=== PATIENT | female | born 1995 | race Caucasian/White ===

== ENCOUNTER → 2017-09-12 | Outpatient (CLI) | payer OTHER | LOC: M RAD 17:32 | DX: Z32.01 Encounter for pregnancy test, result positive (principal) | CPT/HCPCS: 76801 ==

== ENCOUNTER → 2018-02-28 | Outpatient (REF) | payer OTHER | LOC: M SFHCLERA 15:40 | DX: R30.0 Dysuria (principal) ==

== ENCOUNTER 2018-12-02 19:13 | Outpatient (CLI) | payer OTHER ==
[~2018-12-02] VITALS: Ht 162.6 cm; Wt 66.3 kg
[2018-12-02 19:32] VITALS: BP 119/73
[2018-12-02] MEDS ORDERED: PRENTAB77 PO (19:34)
[2018-12-02] MEDS ORDERED: TUMS500C PO (19:38)
== END 2018-12-02 20:30 | disposition home or self-care (01) ==
LOC: M LDO 19:13
PROVIDERS: ATTEND Obstetrics & Gynecology
DX: O26.893 Other specified pregnancy related conditions, third trimester (principal); R10.30 Lower abdominal pain, unspecified; R11.0 Nausea; O47.03 False labor before 37 completed weeks of gestation, third trimester; Z3A.34 34 weeks gestation of pregnancy
CPT/HCPCS: 59025; G0378; G0463

== ENCOUNTER → 2018-12-07 | Outpatient (CLI) | payer OTHER ==
[~2018-12-07] MED LIST: PRENTAB77 PO; TUMS500C PO
--- NOTE | 2018-12-07 10:45 | REP ---
SOFT-TISSUE ULTRASOUND RIGHT LOWER EXTREMITY. HISTORY: 23-year-old gravid female at 35 weeks gestation with right upper thigh pain and bruising. Question DVT. SONOGRAPHIC FINDINGS: The deep veins are anechoic and fully compressible from the groin to the popliteal fossa in the right lower extremity on two-dimensional scanning. Color flow imaging is homogeneous. Spectral Doppler interrogation demonstrates intact respiratory variation in flow normal manual augmentation of flow. There is no evidence of deep vein thrombosis. Scanning in the area the patient's bruising is performed. No abnormality is noted here. The greater saphenous vein is patent, fully compressible and anechoic. IMPRESSION: There is no evidence of deep or superficial vein thrombosis. No mass or fluid collection seen. Electronically Signed by Nir Maciel MD 12/07/2018 02:03 P
== END ==
LOC: M RAD 08:59
PROVIDERS: ATTEND Nurse Practitioner Women's Health
DX: O26.893 Other specified pregnancy related conditions, third trimester (principal); M79.651 Pain in right thigh; Z3A.35 35 weeks gestation of pregnancy

== ENCOUNTER 2019-01-01 02:54 | Outpatient (CLI) | payer OTHER ==
[~2019-01-01] VITALS: Ht 162.6 cm; Wt 68.4 kg
[2019-01-01 03:10] VITALS: BP 120/81
== END 2019-01-01 04:30 | disposition home or self-care (01) ==
LOC: M LDO 02:54
PROVIDERS: ATTEND Obstetrics & Gynecology
DX: O47.1 False labor at or after 37 completed weeks of gestation (principal); Z3A.39 39 weeks gestation of pregnancy
CPT/HCPCS: 59025; G0378; G0463

== ENCOUNTER 2019-01-10 03:01 | Inpatient (IN) | payer OTHER ==
[2019-01-10] VITALS (39 sets, daily range): BP systolic 101–148; BP diastolic 56–96
[~2019-01-10] VITALS: Ht 162.6 cm; Wt 70.0 kg
[2019-01-10] MEDS ORDERED: LR 1,000 ML IV SCH ×2 (04:18→08:00)
[2019-01-10] MEDS ORDERED: LACTATED RINGER'S 1000 ML IV STA (04:18)
[2019-01-10] MEDS ORDERED: PENICILLIN G POTASSIUM IV 5 MU in D5W MINI-BAG PLUS 100 ML IV STA (04:18)
[2019-01-10 05:31] LABS: HEMATOCRIT 36.1 % (36.0-47.0); HEMOGLOBIN 11.6 g/dl (12.0-15.5); MEAN CORPUSCULAR HEMOGLOBIN 31.8 pg (27.0-33.0); MEAN CORPUSCULAR HGB CONC 32.1 g/dl (32.0-36.5); MEAN CORPUSCULAR VOLUME 98.9 fl (80.0-96.0); RED BLOOD COUNT 3.65 10^6/uL (4.00-5.40); WHITE BLOOD COUNT 12.6 10^3/uL (4.0-10.0)
[2019-01-10] MEDS ORDERED: FENTANYL 2MCG/ML ROPIVACAINE 0.2% IN 0.9% NACL 100ML IVBAG As Ordered ONE (05:32)
[2019-01-10 05:53] LABS: PLATELET COUNT, AUTOMATED 92 10^3/uL (150-450)
[2019-01-10] MEDS ORDERED: ePHEDrine SULFATE 25 MG/5 ML(5MG/ML) SYRINGE IV PRN (06:30)
[2019-01-10] MEDS ORDERED: FENTANYL/ROPIVACAINE/NACL BAG 100 ML EPIDURAL SCH (06:30)
[2019-01-10] MEDS ORDERED: EPIDURAL/PCA KEYS XX PRN (06:30)
[2019-01-10] MEDS ORDERED: REFRIGERATOR IV KEYS XX PRN (06:30)
[2019-01-10] MEDS ORDERED: ONDANSETRON 4MG/2ML VIAL (J2405) IV PRN (06:30)
[2019-01-10] MEDS ORDERED: diphenhydrAMINE INJ 50MG/ML VIAL (J1200) IV PRN (06:30)
[2019-01-10] MEDS ORDERED: LACTATED RINGER'S 1000 ML IV PRN (06:30)
[2019-01-10] MEDS ORDERED: NALOXONE INJ 0.4 MG/1 ML VIAL (J2310) IV PRN (06:30)
[2019-01-10] MEDS ORDERED: EPIDURAL COMMENT XX SCH (06:30)
[2019-01-10] MEDS ORDERED: OXYTOCIN DRIP 30 UNITS in IV 1 EA IV SCH ×3 (08:00→18:09)
--- NOTE | 2019-01-10 08:13 | HPE ---
DATE OF ADMISSION: 01/10/2019 HISTORY: 23-year-old, (G) 1, para (P) 0 female, at 40-3/7 weeks gestation by last menstrual period (LMP) consistent with ultrasound, presents to [facility] with contractions every 3-4 minutes for the last several hours. Thinks she has been leaking fluid for the last several hours prior to admission as well. She denies vaginal bleeding and contractions increase in intensity. COURSE: Care was through [facility]. She had no complications. She was group B streptococcus (GBS) positive. MEDICAL HISTORY: False positive tuberculosis test and negative chest x-ray. SURGICAL HISTORY: [place] teeth removal. ALLERGIES: NONE. SOCIAL HISTORY: The father of the baby is involved. The patient denies cigarettes, alcohol, or drug use. FAMILY HISTORY: Noncontributory. PHYSICAL EXAM: Blood pressure 134/74. Pulse 84. She appears uncomfortable. Head and neck exam normal. Lungs clear. Heart regular rate and rhythm. Abdomen nontender, gravid. heart tones category 1. Sterile vaginal exam: 3 cm, 100% and -2, posterior, soft vertex. Contractions every 2-3 minutes. Extremities nontender. LABS: Blood type B positive, rubella immune. GBS positive. ASSESSMENT: 23-year-old, 1, para 0 female, at 40-3/7 weeks gestation who presents in labor. PLAN: The patient is admitted on 01/10/2019.
[2019-01-10] MEDS: PENICILLIN G POTASSIUM IV 2.5 MU in IV 1 EA IV SCH ×3 (08:52→17:01)
[2019-01-10] MEDS ORDERED: DOCUSATE SODIUM 100 MG CAP PO PRN (18:15)
[2019-01-10] MEDS ORDERED: ACETAMINOPHEN TAB 650MG DOSE (2X325MG) PO PRN (18:15)
[2019-01-10] MEDS ORDERED: ANUSOL HC CREAM 30GM TOP PRN (18:15)
[2019-01-10] MEDS ORDERED: RHOGAM 300 MCG (1500 IU) INJ (J2790) IM SCH (18:15)
[2019-01-10] MEDS ORDERED: MOM 30ML SUSPENSION UDC PO PRN (18:15)
[2019-01-10] MEDS ORDERED: DIBUCAINE 1% OINTMENT 30GM TOP PRN (18:15)
[2019-01-10] MEDS ORDERED: IBUPROFEN 600 MG TAB PO PRN (18:15)
[2019-01-10] MEDS ORDERED: OXYTOCIN INJ 10 UNITS/ML VIAL (J2590) IV ONE (18:15)
[2019-01-10] MEDS ORDERED: MEASLES,MUMPS,RUBELLA VACCINE INJ (MMR-II) (90707) SC SCH (18:15)
[2019-01-10] MEDS ORDERED: ACETAMINOPHEN 500 MG TAB PO PRN (18:15)
[2019-01-10] MEDS ORDERED: METHYLERGONOVINE MALEATE 0.2 MG TAB PO PRN (18:15)
[2019-01-10 18:36] LABS: CORD GAS ABE V -4.1; CORD GAS HCO3 V 21.2 MEQ/L; CORD GAS O2 SAT V 84.6 %; CORD GAS PCO2 V 39.5 mmHg; CORD GAS PH V 7.347 UNITS; CORD GAS PO2 V 40.2 mmHg; CORD GAS SBC V 20.8 MEQ/L; CORD GAS TCO2 V 22.4 MEQ/L
[2019-01-10 18:48] LABS: CORD GAS ABE A -4.5; CORD GAS HCO3 A 24.5 MEQ/L; CORD GAS O2 SAT A 54.9 %; CORD GAS PCO2 A 63.1 mmHg; CORD GAS PH A 7.207 UNITS; CORD GAS SBC A 19.8 MEQ/L; CORD GAS TCO2 A 26.4 MEQ/L
[2019-01-10] MEDS ORDERED: OXYTOCIN INJ 10 UNITS/ML VIAL (J2590) As Ordered ONE (18:53)
--- NOTE | 2019-01-10 19:41 | IPN ---
DATE: 01/10/2019 This lady is a 26-year-old 1 at 40 and three weeks of gestation, came with spontaneous rupture of membranes, jose, group B Streptococcus (GBS) positive. On admission, she was 3, 100 and -3 station. She has been on antibiotics for prophylaxis, had an epidural in place and the contractions petered out. On pelvic examination at the present time, she is 3-4 cm, -3.5 station, not well applied, occiput transverse to the left. Clear amniotic fluid is noted. Plan of care is to augment with Pitocin. Presently, her blood pressure is 137/84, respirations are 18, pulse 84 and temperature is 98.0. After discussing the options with the patient, she expressed understanding of the plan of care and we will start Pitocin shortly.
[2019-01-11 06:09] VITALS: BP 123/79
[2019-01-11 08:17] LABS: HEMATOCRIT 35.6 % (36.0-47.0); HEMOGLOBIN 11.6 g/dl (12.0-15.5); MEAN CORPUSCULAR HEMOGLOBIN 31.7 pg (27.0-33.0); MEAN CORPUSCULAR HGB CONC 32.6 g/dl (32.0-36.5); MEAN CORPUSCULAR VOLUME 97.3 fl (80.0-96.0); RED BLOOD COUNT 3.66 10^6/uL (4.00-5.40)
[2019-01-11 09:58] LABS: PLATELET COUNT, AUTOMATED 83 10^3/uL (150-450)
[2019-01-11] MEDS: PRENATAL VITAMINS CHEWABLE TABLET PO SCH (10:12)
[2019-01-11] MEDS: IBUPROFEN 800 MG TAB PO PRN (12:32)
[2019-01-11 18:00] VITALS: BP 117/70
--- NOTE | 2019-01-11 19:58 | DN ---
DATE: 01/10/2019 This lady is a 1, para 0, who was admitted in active labor. She required 5 mU of Pitocin. She eventually got fully dilated with good pushing. She rotated from the persistent occiput posterior (POP) into the occiput anterior (OA. Delivered over an intact perineum a live- female , weighing 7 pounds 13 ounces, 3530 grams. scores 8 and 9 at one and five minutes, respectively. Arterial and venous pH are pending. The placenta delivered spontaneously after 3-vessel cord, membranes and tissues intact with early onset meconium. The uterus contracted well down on Pitocin. The anterior, posterior, and lateral pemberton were complete. The sphincter was tight. Uterus continued to be contracted well down. Blood loss approximately 300 mL. The patient and baby tolerating procedure well.
--- NOTE | 2019-01-11 20:14 | IPN ---
DATE: 01/11/2019 This lady is a 1, now para 1, had a spontaneous vaginal delivery of a live female weighing 7 pounds, 13 ounces, 3530 grams. Arterial pH 7.20, base excess -4.5, venous pH 7.34, base excess -4.1. On her first day, she is doing well, breast-feeding, mobilizing, passing gas and voiding. Her blood pressure today is 123/79, respirations are 18, pulse 82, temperature is 98.7. Plans of management are discharge tomorrow with medications, six-week checkup. At which time, she wants to discuss Mirena intrauterine contraceptive device (IUCD). The rest of the examination is unremarkable. Normocephalic, atraumatic. Neck: Full range of motion. Pupils equal and reactive to light. Distal pulses are symmetric. No evidence of deep vein thrombosis (DVT), pulmonary embolism (PE) or superficial phlebitis. Chest is clear bilaterally to bases. No wheezes or rhonchi. No costovertebral angle (CVA) tenderness. Abdomen is soft. Uterus 2 below. Lochia is moderate. Perineum is swollen but is progressing well. She is using an ice diaper. She has no rashes, lesions or pruritus. No arthralgia or myalgia. No complaint of cough, wheezes, shortness of breath or dyspnea on exertion. No nausea, vomiting, diarrhea or constipation. No urgency or frequency. In summary, we have a term gestation, delivered a live female . Plans as mentioned.
[2019-01-12] MEDS: IBUPROFEN 800 MG TAB PO PRN (05:17)
[2019-01-12 06:12] VITALS: BP 147/77
--- NOTE | 2019-01-12 09:32 | OBDS ---
[facility] Obstetrical Discharge Sum. Obstetrical Discharge Summary Date: Jan 12, 2019 : 1 Term: 1 Pre-term: 0 Abortions: 0 Livin Sex: Female Weight: pounds A/P, Post Course List any complications Admission diagnosis: Labor, SROM Discharge diagnosis: Condition at Discharge: Stable Discharge Instructions: Nothing in vagina for 4-6 weeks, resume exercise as tolerated, no bath/swimming until bleeding stops, monitor for return precautions (bleeding, febrile, foul odor discharge); s/sx PPD/PPA Activity: resume as tolerated Diet: Regular Medications: as ordered Follow-up: 6-8 weeks at [facility]; please call for appointment KAMERON FIELD CNM Jan 12, 2019 09:32
--- NOTE | 2019-01-12 09:37 | IPNPDOC ---
Progress Note Date of Service: Jan 12, 2019 Day#: 2 Progress Note SUBJECT: Ms. Valerio is a 23yo G1 now P1 s/p uncomplicated spontaneous vaginal delivery at approximately 1747 on [id number] of a female infant, 3530g, 7lbs 13oz. Pt is now PP Day #2, has been ambulating, voiding spontaneously without issue and tolerating regular diet. Pumping and bottle feeding without issue, having trouble latching but receiving assistance from . Reports lochia is continuing to lighten. Pt denies any PP concerns. OBJECTIVE: VITAL SIGNS: Within normal limits, afebrile. Alert and oriented times three. Abdomen: Fundus firm at U-1. Lochia minimal. ASSESSMENT: PP Day #2, normal involution, stable and progressing well. Pumping exclusively with assistance for latching. PLAN: 1. Discharge to home today. 2. Tylenol and Motrin for pain. 3. Encourage breast feeding and ambulation. 4. control options discussed; pt desires to wait until PP. 5. Routine PP visit in 6-8 weeks in clinic. 6. Discussed return precautions at length. VS, I&O, 24H, Fishbone Vital Signs/I&O Vital Signs Date Time Temp Pulse Resp B/P (MAP) Pulse Ox O2 Delivery O2 Flow Rate FiO2 01/12/19 06:12 97.3 71 19 147/77 (100) 01/10/19 21:02 98 KAMERON FIELD CNM Jan 12, 2019 09:37
[2019-01-12] MEDS ORDERED: Ibuprofen PO (09:40)
[2019-01-12] MEDS ORDERED: ACET1TAB55 PO (09:40)
[2019-01-12] MEDS: PRENATAL VITAMINS CHEWABLE TABLET PO SCH (10:07)
== END 2019-01-12 12:15 | disposition home or self-care (01) | DRG 807 ==
LOC: M LDO 03:01 → M LDI 03:19 → M OBS 20:53
PROVIDERS: ADMIT Specialist; ATTEND Specialist
PROC: 10E0XZZ Delivery of Products of Conception, External Approach (ICD-10-PCS; principal; 2019-01-10)
DX: O48.0 Post-term pregnancy (principal); Z37.0 Single live birth; Z3A.40 40 weeks gestation of pregnancy; O99.820 Streptococcus B carrier state complicating pregnancy